=== PATIENT | female | born 1990 | race Caucasian/White ===

== ENCOUNTER 2020-09-15 19:27 | Emergency (ER) | payer MEDICAID, OTHER ==
[~2020-09-15] VITALS: Ht 172.7 cm; Wt 88.8 kg
[2020-09-15 19:33] VITALS: BP 114/68
[2020-09-15] MEDS ORDERED: diphenhydrAMINE 25 MG TAB (BENADRYL) PO STA (19:47)
[2020-09-15] MEDS ORDERED: methylPREDNISolone 80 MG/ML (DEPO MEDROL) VIAL IM STA (19:47)
--- NOTE | 2020-09-15 19:52 | ED Integumentary General ---
General Chief Complaint: Skin/Wound Problems Stated Complaint: RASH Source: patient History of Present Illness Date Seen by Provider: Sep 15, 2020 Time Seen by Provider: 19:32 Initial Comments 29-year-old female presenting with over a week of progressive rash and itching. She states that she first noticed areas on her arm and now has areas over her entire body. She thought initially it might be ringworm but it was not responding to rlpu-wpo-zyyrivk medicine for ringworm. She now has concerned that it might be fleabites as she has been staying with her boyfriend at a relatives house and she moved here to [place]. The have moved out to a different location in the last few days. She however continues to have spots on her body. She states that no one else has had any bumps or areas that are itching. She denies any shortness of breath, wheezing, fever, chills, nausea, vomiting, diarrhea, abdominal pain, headache, tick bites. She has tried kfrd-vqf-mvvnkch hydrocortisone cream as well as ringworm medication without improvement. Timing/Duration: week, getting worse (Spreading to more areas) Severity: moderate Location: generalized Possible Cause: no cause identified (Unsure of cause, possible flea bites) Associated Symptoms: No blisters, No change in skin texture, No edema, No fever, No flushing, No headache, No hives, No jaundice, No malaise, No nasal congestion, No numbness, No pallor, No paresthesia, No petechiae, No sore throat, No swelling/mass/lumps, No tingling Allergies and Home Medications Allergies Coded Allergies: No Known Drug Allergies (Unverified , 09/15/20) Patient Home Medication List Home Medication List Reviewed: Yes Review of Systems Review of Systems Constitutional: No chills, No fever EENTM: no symptoms reported Respiratory: no symptoms reported Cardiovascular: no symptoms reported Gastrointestinal: no symptoms reported Genitourinary: no symptoms reported Musculoskeletal: no symptoms reported Skin: see HPI Psychiatric/Neurological: No Symptoms Reported Endocrine: No Symptoms Reported Past Gsluxff-Tstxkl-Jmcugc Hx Past Medical History 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) Physical Exam Vital Signs Vital Signs - First Documented 09/15/20 19:33 Temp 36.6 Pulse 97 Resp 16 B/P (MAP) 114/68 (83) Pulse Ox 98 O2 Delivery Room Air Capillary Refill : General Appearance: WD/WN, no apparent distress HEENT: PERRL/EOMI, pharynx normal Neck: non-tender, full range of motion, supple, normal inspection Cardiovascular: normal peripheral pulses, regular rate, rhythm Respiratory: chest non-tender, lungs clear, normal breath sounds, no respiratory distress, no accessory muscle use Gastrointestinal: normal bowel sounds, no pulsatile mass Extremities: normal range of motion, non-tender, normal capillary refill Neurologic/Psychiatric: 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 tested, alert, oriented x 3 Skin: warm/dry, rash (diffuse erythematous papules) Skin Problem Location: generalized Skin Problem Character: erythema, papules Lymphatic: no adenopathy Progress/Results/Core Measures Results/Orders My Orders Orders - EMILY CARO MD Dexamethasone Injection (Decadron Inje (09/15/20 19:47) Methylprednisolone Acetate Inj (Depo-Med (09/15/20 19:47) Diphenhydramine Tablet (Benadryl Tablet) (09/15/20 19:47) Vital Signs/I&O 09/15/20 19:33 Temp 36.6 Pulse 97 Resp 16 B/P (MAP) 114/68 (83) Pulse Ox 98 O2 Delivery Room Air Progress Progress Note : Progress Note Advised patient that I cannot identify the exact source of her itching and rash. We will try using a steroid since she is having itching. Counseled on antihistamine use for itching as well. Advised that she could establish care follow-up through the clinic for continued concerns and if needed they could help get her in with a forestry aid. If this is from fleabites then moving out of the boyfriend's family's home should also help provide did not take any fleas with them on their belongings. Departure Impression Primary Impression: Dermatitis Disposition: HOME, SELF-CARE Condition: Stable Departure-Patient Inst. Decision time for Depature: 19:49 Referrals: NO,LOCAL PHYSICIAN (PCP/Family) Primary Care Physician Patient Instructions: Dermatitis Add. Discharge Instructions: This may be from flea or bug bites. You could try using Cetirizine (Zyrtec) for itching when you have to be awake and Benadryl (Diphenhydramine) at times that you can be sleepy or able to rest. The steroid shots will help clear up the rash and itching. Call the [facility] clinic at [phone] to get established with a primary provider through the clinic and they can help with the rash and itching if it is not clearing up All discharge instructions reviewed with patient and/or family. Voiced understanding. Work/School Note: Work Release Form Date Seen in the Emergency Department: Sep 15, 2020 Return to Work: Sep 16, 2020 Restrictions: No Restrictions EMILY CARO MD Sep 15, 2020 19:52
== END 2020-09-15 19:59 | disposition home or self-care (01) ==
LOC: ER FS 19:31
DX: L30.9 Dermatitis, unspecified (principal)
CPT/HCPCS: 99284